=== PATIENT | female | born 1945 | race Caucasian/White ===

== ENCOUNTER 2024-04-06 12:30 | Inpatient (IN) | payer MEDICARE, OTHER ==
[2024-04-06] VITALS (8 sets, daily range): BP systolic 112–147; BP diastolic 60–88
[~2024-04-06] VITALS: Ht 165.1 cm; Wt 105.0 kg
[2024-04-06] MEDS ORDERED: WARFARIN SODIUM5 MG PO (12:49)
[2024-04-06] MEDS ORDERED: WARFARIN SOD5 MG PO (12:51)
[2024-04-06] MEDS ORDERED: HYDROCHLOROTH12.5 M3 PO (12:53)
[2024-04-06] MEDS ORDERED: ATORVASTATIN CA40 M1 PO (12:53)
[2024-04-06] MEDS ORDERED: LEVOTHYROXINE125 MCG PO (12:54)
[2024-04-06] MEDS ORDERED: IMDUR SA30 MG PO (12:54)
[2024-04-06] MEDS ORDERED: DONEPEZIL HCL10 MG PO (12:54)
[2024-04-06] MEDS ORDERED: ZETIA10 MG PO (12:55)
[2024-04-06] MEDS ORDERED: BUSPAR5 MG PO (12:56)
[2024-04-06] MEDS ORDERED: VITAMIN B121000 MC1 PO (12:57)
[2024-04-06] MEDS ORDERED: MORPHINE Sulfate 2 MG/ML SYR IV ONE (13:05)
[2024-04-06] MEDS ORDERED: Lactated Ringer's Solution 1,000 ML IV SCH (13:10)
[2024-04-06 13:30] LABS: BASO # 0.1 10*3/uL (0.0-0.1); BASO % 0.3 % (0.0-1.0); EOS # 0.1 10*3/uL (0.0-0.4); EOS % 0.4 % (1.0-4.0); HEMATOCRIT 38.3 % (37.0-47.0); MEAN CELL VOLUME 95.8 fl (81.0-99.0); MEAN CORPUSCULAR HGB 30.3 pg (27.0-31.0); MEAN CORPUSCULAR HGB CONC 31.6 g/dl (33.0-37.0); MONO # 1.4 10*3/uL (0.1-1.0); MONO % 9.1 % (3.0-9.0); NEUT # 12.8 10*3/uL (2.3-7.9); NEUT % 81.3 % (47.0-73.0); PLATELET COUNT AUTOMATED 369 10*3/uL (130-400); RED CELL DISTRI WIDTH 13.7 % (0-14.5); WHITE BLOOD COUNT 15.7 10*3/uL (4.8-10.8)
[2024-04-06] MEDS ORDERED: IOHEXOL 300 MG/ML 100 ML VIAL IV ONE (13:35)
[2024-04-06 13:49] LABS: ALKALINE PHOSPHATASE 119 U/L (46-116); BUN 18 mg/dl (9-23); CHLORIDE 102 mmol/L (98-107); LIPASE 36 U/L (12-53); SGPT/ALT 11 U/L (5-49); TOTAL PROTEIN 7.2 gm/dL (6.0-8.0)
[2024-04-06] MEDS ORDERED: Piperacillin Sodium/Tazobact 50 ML IV ONE (15:40)
[2024-04-06] MEDS ORDERED: BISACODYL 5 MG TAB PO PRN (16:35)
[2024-04-06] MEDS ORDERED: Ondansetron Hydrochloride 4 MG/2 ML VIAL IV PRN (16:35)
[2024-04-06] MEDS ORDERED: Magnesium Hydroxide 30 ML UDC PO PRN (16:35)
[2024-04-06] MEDS ORDERED: TEMAZEPAM 15 MG CAP PO PRN (16:35)
[2024-04-06] MEDS ORDERED: MORPHINE Sulfate 2 MG/ML SYR IV PRN (16:35)
[2024-04-06] MEDS ORDERED: PHYTONADIONE 5 MG in SODIUM CHLORIDE 0.9% 50 ML IV ONE (18:00)
[2024-04-06 20:07] LABS: BILIRUBIN Negative (Negative); BLOOD 3+ (Negative); CLARITY Clear (Clear); COLOR Yellow (Yellow); GLUCOSE Negative (Negative); KETONE Trace (Negative); LEUKO ESTERASE Negative (Negative); NITRITE Negative (Negative); PH 6.5 (4.5-8.0); SPECIFIC GRAVITY >= 1.030 (1.001-1.030)
[2024-04-06 20:19] LABS: BACTERIA TRACE; EPITHELIAL CELLS 16-20; MUCOUS 1+; RBC 31-40 rbc/hpf (0-2)
[2024-04-06] MEDS ORDERED: Ketorolac Tromethamine 15 MG/ML VIAL IV PRN (20:30)
[2024-04-06] MEDS ORDERED: SODIUM CHLORIDE 0.9% 500 ML IV ONE (21:41)
[2024-04-06] MEDS ORDERED: KETOCONAZOLE 15 GM TUBE T SCH (22:00)
[2024-04-06] MEDS ORDERED: Piperacillin Sodium/Tazobact 50 ML IV SCH (22:00)
[2024-04-07] VITALS (20 sets, daily range): BP systolic 123–160; BP diastolic 60–90
[2024-04-07 06:18] LABS: BUN 22 mg/dl (9-23); CHLORIDE 102 mmol/L (98-107); CHOLESTEROL 97 mg/dL (<200); LDL CHOLESTEROL 34 mg/dL (9-159); TRIGLYCERIDES 61 mg/dl (<150)
[2024-04-07 06:20] LABS: HEMATOCRIT 37.2 % (37.0-47.0); MEAN CELL VOLUME 94.2 fl (81.0-99.0); MEAN CORPUSCULAR HGB 30.6 pg (27.0-31.0); MEAN CORPUSCULAR HGB CONC 32.5 g/dl (33.0-37.0); MEAN PLATELET VOLUME 10.5 fl (9.6-12.3); PLATELET COUNT AUTOMATED 297 10*3/uL (130-400); RED BLOOD COUNT 3.95 10*6/uL (4.10-5.10); RED CELL DISTRI WIDTH 14.1 % (0-14.5); WHITE BLOOD COUNT 21.9 10*3/uL (4.8-10.8)
[2024-04-07 06:30] LABS: MANUAL DIFF REFLEX YES
[2024-04-07 07:02] LABS: BASOPHILS 1 % (0-1); PLATELET SUFFICIENCY NORMAL (NORMAL); TOTAL CELLS COUNTED 100 #CELLS
[2024-04-07 07:36] LABS: VITAMIN D, 25-HYDROXY 44.7 ng/mL (30-100)
[2024-04-07] MEDS ORDERED: NYSTATIN 15 GM BOT T SCH (10:00)
[2024-04-07] MEDS ORDERED: SODIUM CHLORIDE 0.9% 100 ML IV ONE ×2 (10:01→15:09)
[2024-04-07] MEDS ORDERED: SODIUM CHLORIDE 0.9% 1,000 ML IV ONE ×3 (10:25→14:54)
[2024-04-07] MEDS ORDERED: ACETAMINOPHEN 100 ML IV ONE (13:50)
[2024-04-07] MEDS ORDERED: BUPIVACAINE 0.5% 30 ML IV ONE (14:18)
[2024-04-07] MEDS ORDERED: HYDROmorphONE Hydrochloride 0.5 MG/0.5 ML SYRINGE IV PRN (16:10)
[2024-04-07] MEDS ORDERED: HYDROmorphONE Hydrochloride 0.5 MG/0.5 ML SYRINGE ONE (16:19)
[2024-04-07] MEDS ORDERED: Dexamethasone Sodium Phospha 4 MG/ML VIAL IV ONE (16:42)
[2024-04-07] MEDS ORDERED: SEVOFLURANE 250 ML BOT INH ONE (16:42)
[2024-04-07] MEDS ORDERED: ROCURONIUM BROMIDE 50 MG/5 ML SYRINGE IV ONE (16:42)
[2024-04-07] MEDS ORDERED: SUGAMMADEX SODIUM 200 MG/2 ML VIAL IV ONE (16:42)
[2024-04-07] MEDS ORDERED: PROPOFOL 200 MG/20 ML VIAL IV ONE (16:42)
[2024-04-07] MEDS ORDERED: MIDAZOLAM 2 MG/ML PO ONE (16:42)
[2024-04-07] MEDS ORDERED: Ondansetron Hydrochloride 4 MG/2 ML VIAL IV ONE (16:42)
[2024-04-07] MEDS ORDERED: fentaNYL CITRATE 100 MCG/2 ML VIAL IV ONE (16:42)
[2024-04-07] MEDS ORDERED: Lidocaine Hydrochloride 2% 5 ML SDV IV ONE (16:42)
[2024-04-07] MEDS ORDERED: Succinylcholine Chloride 200 MG/10 ML SYRINGE IV ONE (16:42)
[2024-04-07] MEDS ORDERED: Phenylephrine Hydrochloride 1 MG/10 ML SYRINGE IV ONE (16:42)
[2024-04-07] MEDS ORDERED: PAIN RELIEVER325 MG PO (17:55)
[2024-04-07] MEDS ORDERED: HEEL PROTECTOR DEVICE ONE (18:50)
[2024-04-08] VITALS: BP 129/66
[2024-04-08] MEDS ORDERED: Levothyroxine Sodium 125 MCG TAB PO SCH (07:53)
[2024-04-08 08:00] VITALS: BP 132/67
[2024-04-08 08:24] LABS: BASO # 0.1 10*3/uL (0.0-0.1); BASO % 0.2 % (0.0-1.0); HEMATOCRIT 35.2 % (37.0-47.0); MEAN CORPUSCULAR HGB 30.8 pg (27.0-31.0); MEAN CORPUSCULAR HGB CONC 31.5 g/dl (33.0-37.0); MEAN PLATELET VOLUME 10.7 fl (9.6-12.3); MONO # 1.5 10*3/uL (0.1-1.0); MONO % 7.2 % (3.0-9.0); NEUT # 18.6 10*3/uL (2.3-7.9); NEUT % 87.4 % (47.0-73.0); PLATELET COUNT AUTOMATED 255 10*3/uL (130-400); RED CELL DISTRI WIDTH 14.1 % (0-14.5); WHITE BLOOD COUNT 21.3 10*3/uL (4.8-10.8)
[2024-04-08 08:25] LABS: MEAN CELL VOLUME 97.8 fl (81.0-99.0)
[2024-04-08 08:47] LABS: BURR CELLS FEW; OVALOCYTES FEW; POLYCHROMASIA SLIGHT; TOTAL CELLS COUNTED 100 #CELLS
[2024-04-08 08:48] LABS: PLATELET SUFFICIENCY NORMAL (NORMAL)
[2024-04-08] MEDS ORDERED: DONEPEZIL 10 MG TAB PO SCH (10:00)
[2024-04-08] MEDS ORDERED: EZETIMIBE 10 MG TAB PO SCH (10:00)
[2024-04-08] MEDS ORDERED: busPIRone Hydrochloride 5 MG TAB PO SCH (10:00)
[2024-04-08 12:00] VITALS: BP 132/66
[2024-04-08 16:00] VITALS: BP 144/62
[2024-04-08 20:00] VITALS: BP 129/67
[2024-04-09] VITALS: BP 151/78
[2024-04-09 06:16] LABS: BASO % 0.2 % (0.0-1.0); EOS # 0.1 10*3/uL (0.0-0.4); EOS % 0.4 % (1.0-4.0); HEMATOCRIT 31.5 % (37.0-47.0); MEAN CELL VOLUME 96.3 fl (81.0-99.0); MEAN CORPUSCULAR HGB CONC 31.1 g/dl (33.0-37.0); MEAN PLATELET VOLUME 10.4 fl (9.6-12.3); MONO # 1.1 10*3/uL (0.1-1.0); MONO % 7.1 % (3.0-9.0); NEUT # 12.1 10*3/uL (2.3-7.9); NEUT % 81.9 % (47.0-73.0); PLATELET COUNT AUTOMATED 257 10*3/uL (130-400); RED BLOOD COUNT 3.27 10*6/uL (4.10-5.10); RED CELL DISTRI WIDTH 14.1 % (0-14.5); WHITE BLOOD COUNT 14.8 10*3/uL (4.8-10.8)
[2024-04-09 06:32] LABS: BUN 26 mg/dl (9-23); CHLORIDE 104 mmol/L (98-107); POTASSIUM 3.3 mmol/L (3.4-5.1)
[2024-04-09 08:00] VITALS: BP 130/71
[2024-04-09] MEDS ORDERED: POTASSIUM CHLORIDE 20 MEQ TAB PO ONE (08:15)
[2024-04-09 12:00] VITALS: BP 102/59
[2024-04-09] MEDS ORDERED: METRONIDAZOLE500 M1 PO (14:09)
[2024-04-09] MEDS ORDERED: 'CIPRO500 M1 PO (14:09)
[2024-04-09 16:00] VITALS: BP 108/56
[2024-04-09] MEDS ORDERED: RIVAROXABAN 20 MG TAB PO SCH (18:00)
[2024-04-10] MEDS ORDERED: XARE20MG PO (17:21)
== END 2024-04-09 18:26 | DRG 418 ==
LOC: ED 12:30 → EDHOLD 16:02 → 4E 16:02
PROVIDERS: Emergency Medicine; Student in an Organized Health Care Education/Training Program; ADMIT Family Medicine; ATTEND Family Medicine
PROC: 30233K1 Transfusion of Nonautologous Frozen Plasma into Peripheral Vein, Percutaneous Approach (ICD-10-PCS; 2024-04-06)
PROC: 0FT44ZZ Resection of Gallbladder, Percutaneous Endoscopic Approach (ICD-10-PCS; principal; 2024-04-07)
DX: K80.00 Calculus of gallbladder with acute cholecystitis without obstruction (principal); E44.0 Moderate protein-calorie malnutrition; E87.1 Hypo-osmolality and hyponatremia; K82.A2 Perforation of gallbladder in cholecystitis; F03.90 Unspecified dementia, unspecified severity, without behavioral disturbance, psychotic disturbance, mood disturbance, and anxiety; K44.9 Diaphragmatic hernia without obstruction or gangrene; K57.30 Diverticulosis of large intestine without perforation or abscess without bleeding; E03.9 Hypothyroidism, unspecified; K21.9 Gastro-esophageal reflux disease without esophagitis; Z66 Do not resuscitate; E78.5 Hyperlipidemia, unspecified; I10 Essential (primary) hypertension; R73.9 Hyperglycemia, unspecified; L30.4 Erythema intertrigo; Z51.5 Encounter for palliative care; Z80.42 Family history of malignant neoplasm of prostate; Z80.0 Family history of malignant neoplasm of digestive organs; Z68.38 Body mass index [BMI] 38.0-38.9, adult

== ENCOUNTER 2024-04-13 15:12 | Observation (INO) | payer MEDICARE, OTHER ==
[~2024-04-13] VITALS: Ht 165 cm; Wt 107.0 kg
[~2024-04-13 15:12] MED LIST: 'CIPRO500 M1 PO; ATORVASTATIN CA40 M1 PO; BUSPAR5 MG PO; DONEPEZIL HCL10 MG PO; HYDROCHLOROTH12.5 M3 PO; IMDUR SA30 MG PO; LEVOTHYROXINE125 MCG PO; METRONIDAZOLE500 M1 PO; PAIN RELIEVER325 MG PO; VITAMIN B121000 MC1 PO; WARFARIN SOD5 MG PO; WARFARIN SODIUM5 MG PO; XARE20MG PO; ZETIA10 MG PO
[2024-04-13 15:17] VITALS: BP 105/52
[2024-04-13 16:45] LABS: HEMATOCRIT 30.2 % (37.0-47.0); MEAN CELL VOLUME 95.3 fl (81.0-99.0); MEAN CORPUSCULAR HGB 30.3 pg (27.0-31.0); MEAN CORPUSCULAR HGB CONC 31.8 g/dl (33.0-37.0); MEAN PLATELET VOLUME 9.7 fl (9.6-12.3); PLATELET COUNT AUTOMATED 360 10*3/uL (130-400); RED BLOOD COUNT 3.17 10*6/uL (4.10-5.10); RED CELL DISTRI WIDTH 14.5 % (0-14.5); WHITE BLOOD COUNT 15.3 10*3/uL (4.8-10.8)
[2024-04-13 16:47] LABS: MANUAL DIFF REFLEX YES
[2024-04-13 16:57] LABS: ACT PARTIAL THROMBO TIME 30.8 SECONDS (20.0-32.1)
[2024-04-13 17:09] LABS: ALKALINE PHOSPHATASE 108 U/L (46-116); BUN 12 mg/dl (9-23); CHLORIDE 100 mmol/L (98-107); POTASSIUM 3.7 mmol/L (3.4-5.1); SGPT/ALT 18 U/L (5-49); TOTAL PROTEIN 6.7 gm/dL (6.0-8.0)
[2024-04-13 17:28] LABS: BASOPHILS 1 % (0-1); PLATELET SUFFICIENCY NORMAL (NORMAL); TOTAL CELLS COUNTED 100 #CELLS
[2024-04-13 17:29] LABS: OVALOCYTES FEW; POLYCHROMASIA SLIGHT; STOMATOCYTE FEW
[2024-04-13 17:30] LABS: ROULEAUX SLIGHT
[2024-04-13 17:44] VITALS: BP 100/44
[2024-04-13 18:57] VITALS: BP 117/70
[2024-04-13 21:00] VITALS: BP 113/70
[2024-04-13] MEDS ORDERED: Magnesium Hydroxide 30 ML UDC PO PRN (23:15)
[2024-04-13] MEDS ORDERED: MORPHINE Sulfate 2 MG/ML SYR IV PRN (23:15)
[2024-04-13] MEDS ORDERED: ACETAMINOPHEN 325 MG TAB PO PRN ×2 (23:15→23:25)
[2024-04-13] MEDS ORDERED: BISACODYL 5 MG TAB PO PRN (23:15)
[2024-04-13] MEDS ORDERED: Ondansetron Hydrochloride 4 MG/2 ML VIAL IV PRN (23:15)
[2024-04-13] MEDS ORDERED: Acetaminophen/Hydrocodone 5 MG/325 MG TABLET PO PRN (23:15)
[2024-04-13 23:19] LABS: BILIRUBIN Negative (Negative); BLOOD Negative (Negative); CLARITY Clear (Clear); COLOR Dark Yellow (Yellow); GLUCOSE Negative (Negative); KETONE Trace (Negative); LEUKO ESTERASE Negative (Negative); NITRITE Negative (Negative); UROBILINOGEN 0.2 E.U./dl (0.0-1.0)
[2024-04-13 23:35] LABS: BACTERIA 1+; MUCOUS 1+
[2024-04-14 01:17] VITALS: BP 143/70
[2024-04-14 03:00] VITALS: BP 140/81
[2024-04-14] MEDS ORDERED: XARELTO10 MG PO (05:06)
[2024-04-14 05:30] LABS: ALKALINE PHOSPHATASE 108 U/L (46-116); BUN 12 mg/dl (9-23); CHLORIDE 101 mmol/L (98-107); FREE T4 1.31 ng/dl (0.89-1.76); POTASSIUM 3.3 mmol/L (3.4-5.1); SGPT/ALT 17 U/L (5-49); TOTAL PROTEIN 6.7 gm/dL (6.0-8.0)
[2024-04-14] MEDS ORDERED: Levothyroxine Sodium 125 MCG TAB PO SCH (06:00)
[2024-04-14 06:02] LABS: BASO # 0.1 10*3/uL (0.0-0.1); BASO % 0.5 % (0.0-1.0); EOS # 0.5 10*3/uL (0.0-0.4); EOS % 3.5 % (1.0-4.0); MEAN CELL VOLUME 96.1 fl (81.0-99.0); MEAN CORPUSCULAR HGB 30.3 pg (27.0-31.0); MEAN CORPUSCULAR HGB CONC 31.6 g/dl (33.0-37.0); MEAN PLATELET VOLUME 9.9 fl (9.6-12.3); MONO # 1.2 10*3/uL (0.1-1.0); MONO % 8.9 % (3.0-9.0); NEUT # 8.3 10*3/uL (2.3-7.9); NEUT % 63.3 % (47.0-73.0); PLATELET COUNT AUTOMATED 363 10*3/uL (130-400); RED BLOOD COUNT 3.33 10*6/uL (4.10-5.10); RED CELL DISTRI WIDTH 14.6 % (0-14.5); WHITE BLOOD COUNT 13.1 10*3/uL (4.8-10.8)
[2024-04-14 08:00] VITALS: BP 141/76
[2024-04-14] MEDS ORDERED: POTASSIUM CHLORIDE 20 MEQ TAB PO ONE (09:10)
[2024-04-14] MEDS ORDERED: EZETIMIBE 10 MG TAB PO SCH (10:00)
[2024-04-14] MEDS ORDERED: ISOSORBIDE MONONITRATE 30 MG TAB PO SCH (10:00)
[2024-04-14] MEDS ORDERED: HYDROCHLOROTHIAZIDE 12.5 MG CAP PO SCH (10:00)
[2024-04-14] MEDS ORDERED: busPIRone Hydrochloride 5 MG TAB PO SCH (10:00)
[2024-04-14 12:00] VITALS: BP 120/62
[2024-04-14 15:55] VITALS: BP 105/56
[2024-04-14] MEDS ORDERED: RIVAROXABAN 20 MG TAB PO SCH (17:00)
[2024-04-14] MEDS ORDERED: ATORVASTATIN CALCIUM 40 MG TABLET PO SCH (18:00)
[2024-04-14 20:00] VITALS: BP 110/60
== END 2024-04-15 00:28 ==
LOC: ED 15:12 → EDHOLD 23:03 → ICCU 23:03 → EDHOLD 23:03 → ICCU 04-14 02:35
PROVIDERS: Internal Medicine; ADMIT Internal Medicine; ATTEND Internal Medicine
DX: R53.1 Weakness (principal); G90.9 Disorder of the autonomic nervous system, unspecified; D72.828 Other elevated white blood cell count; D64.9 Anemia, unspecified; R73.9 Hyperglycemia, unspecified; R74.01 Elevation of levels of liver transaminase levels; I51.7 Cardiomegaly; E03.9 Hypothyroidism, unspecified; E78.5 Hyperlipidemia, unspecified; R79.1 Abnormal coagulation profile; I10 Essential (primary) hypertension; F03.90 Unspecified dementia, unspecified severity, without behavioral disturbance, psychotic disturbance, mood disturbance, and anxiety; Z79.899 Other long term (current) drug therapy